=== PATIENT | male | born 1965 | race Caucasian/White ===

== ENCOUNTER 2016-12-18 | Outpatient (CLI) | payer SELFPAY | END 2016-12-18 18:37 | disposition critical access hospital (66) | CPT/HCPCS: A0425; A0429 ==

== ENCOUNTER 2016-12-18 18:47 | Emergency (ER) | payer SELFPAY ==
--- NOTE | 2016-12-18 20:19 | ED Physician Documentation ---
PD HPI LOWER EXT INJURY - Stated complaint Stated Complaint: STAPLE IN HEEL - Chief complaint Chief Complaint: Ext Problem - History obtained from History obtained from: Patient - History of Present Illness PD HPI LOW EXT INJURY LOCATION: Left, Foot (heel) Type of injury: Foreign body (he stepped on staple that was on corner protector of mattress, and it is stuck in heel. He tried to pull it but met resistance and it hurt, so seemed stuck.) Where injury occurred: Home Timing - onset: How many hours ago (11), Today Timing - duration: Hours Timing - details: Still present Worsened by: Palpating Similar symptoms before: Has not had sx before Recently seen: Not recently seen Review of Systems Constitutional: denies: Fever, Chills Neurologic: denies: Focal weakness, Numbness PD PAST MEDICAL HISTORY - Past Medical History Past Medical History: Yes GI: Pancreatitis - Past Surgical History Past Surgical History: No - Present Medications Home Medications: Ambulatory Orders Medication Instructions Recorded Confirmed No Known Home Medications [No 12/18/16 12/18/16 Known Home Medications] - Allergies Allergies/Adverse Reactions: Allergies Allergy/AdvReac Type Severity Reaction Status Date / Time morphine sulfate * Allergy Hallucinati Verified 12/18/16 18:53 [From MS Contin] ons - Social History Does the pt smoke?: No Smoking Status: Never smoker Does the pt drink ETOH?: No Does the pt have substance abuse?: No - Immunizations Immunizations are current?: No PD ED PE NORMAL - Vitals Vital signs reviewed: Yes - General General: Alert and oriented X 3, Well developed/nourished - Derm Derm: Normal color, Warm and dry - Extremities Extremities: Other (left heel with staple into the subcutaneous area protruding from mattress corner protector. This is taped immobile to his foot to keep it from moving. ) - Neuro Neuro: No motor deficit, No sensory deficit Results - Vitals Vitals: Oxygen O2 Source Room air Procedures - FB removal FB location: Subcutaneous FB removal preparation: Local anesthesia-specify (lido with epi) Removal method: Other (pulled it out) FB removal aftercare: No complications, Patient tolerated well, Removed successfully PD MEDICAL DECISION MAKING - ED course Complexity details: considered differential, d/w patient Departure - Departure Disposition: 01 Home, Self Care Clinical Impression: Requires a booster tetanus Acute foreign body of heel Qualifiers: Encounter type: initial encounter Laterality: left Qualified Code(s): S90.852A - Superficial foreign body, left foot, initial encounter Condition: Stable Record reviewed to determine appropriate education?: Yes Instructions: ED Foreign Body Soft Tissue Removed Follow-Up: Reese Silva MD [Primary Care Provider] - Comments: soak the heel in warm water this evening for a short time to help get germs out. Tylenol or Ibuprofen as needed for pains. Recheck if signs of infection. You did receive a tetanus booster today, and that is good for 10 years. Discharge Date/Time: 12/18/16 21:03
[2016-12-18 20:58] VITALS: BP 153/86
[2016-12-18] MEDS ORDERED: TETANUS/DIPHTHERIA/PERTUSSIS 0.5 ML SYRINGE IM ONE (20:58)
[2016-12-18] MEDS: TETANUS/DIPHTHERIA/PERTUSSIS 0.5 ML SYRINGE IM ONE (21:00)
== END 2016-12-18 21:03 | disposition home or self-care (01) ==
LOC: EDUNIT# → EDBD → SUPCPDRO 18:47 → ED 18:47
DX: S91.342A Puncture wound with foreign body, left foot, initial encounter (principal); W45.8XXA Other foreign body or object entering through skin, initial encounter; Z23 Encounter for immunization
CPT/HCPCS: 28190; 90471; 99282; 99283

== ENCOUNTER 2021-06-24 13:49 | Outpatient (CLI) | payer OTHER | END 2021-06-24 13:50 | disposition home or self-care (01) | LOC: COV 13:49 | PROVIDERS: ATTEND Family Medicine | DX: R07.0 Pain in throat (principal); Z20.822 Contact with and (suspected) exposure to COVID-19 ==